=== PATIENT | male | born 1975 | race Two or more races ===

== ENCOUNTER 2022-09-07 19:04 | Emergency (ER) | payer SELFPAY ==
[~2022-09-07] VITALS: Ht 167.6 cm; Wt 72.0 kg
[2022-09-07] MEDS ORDERED: IBUP-1454 PO (21:27)
[2022-09-07 21:34] LABS: Urine Bacteria NONE SEEN /hpf (None Seen); Urine Blood Negative /uL (Negative); Urine Mucus FEW (None Seen); Urine WBC 1 /hpf (0 - 3)
[2022-09-07 22:14] VITALS: BP 120/57
== END 2022-09-07 22:16 | disposition home or self-care (01) ==
LOC: ER 19:04
DX: N50.3 Cyst of epididymis (principal)
CPT/HCPCS: 76870; 81001